=== PATIENT | female | born 1985 | race Caucasian/White ===

== ENCOUNTER 2018-09-22 16:12 | Emergency (ER) | payer OTHER ==
[~2018-09-22] VITALS: Ht 167.6 cm; Wt 51.3 kg
[~2018-09-22 16:12] MED LIST: NKM
--- NOTE | 2018-09-22 16:21 | NUR ---
ED Nurse Note: PT BROUGHT IN TO ER TODAY BY [id number] FROM HOME. AOX4. PT C/O HEADACHE, PAIN 10/10, X 1 HOUR AGO ALONG WITH RIGHT SIDED FACIAL NUMBNESS. PT STATES HEADACHE HAS SUBSIDED TO 4/10 NOW. PT ALSO STATES NUMBNESS HAS ALSO SUBSIDED. NO FACIAL DROOPING NOTED - EQUAL SMILE AND EYEBROW RAISES. NO ARM OR LEG DRIFTS. FULL VF AND OCULAR MOTILITY. PT DOES STATE SENSATION IS LESS ON THE RIGHT SIDE ON BOTH UPPER AND LOWER EXTREMITIES.
[2018-09-22 16:24] VITALS: BP 122/84
[2018-09-22] MEDS ORDERED: LORazepam 0.5mg tab ORAL ONE (16:30)
[2018-09-22 16:41] LABS: APPEARANCE,URINE CLEAR; BILIRUBIN, URINE NEGATIVE (NEGATIVE); GLUCOSE, URINE (UA) NEGATIVE (NEGATIVE); KETONES,URINE 1+ (NEGATIVE); LEUKOCYTE ESTERASE ,URINE NEGATIVE (NEGATIVE); NITRITE,URINE NEGATIVE (NEGATIVE); PH,URINE 5 (4.5-8.0); PROTEIN,URINE NEGATIVE (NEGATIVE); UROBILINOGEN,URINE 1 MG/DL (0.0-1.0)
[2018-09-22 16:44] LABS: COLOR,URINE YELLOW
[2018-09-22] MEDS ORDERED: Metoclopramide 10mg/2ml Inj IVP ONE (16:45)
[2018-09-22] MEDS ORDERED: DiphenhydrAMINE 50mg/ml Inj IVP ONE (16:45)
--- NOTE | 2018-09-22 16:53 | NUR ---
ED Nurse Note: PT TO CT VIA GREG.
[2018-09-22 17:26] LABS: BASOPHILS % (AUTO) 0.9 % (0.0-2.0); EOSINOPHILS % (AUTO) 1.3 % (0.0-3.0); HEMOGLOBIN 12.8 G/DL (12.0-16.0); LYMPHOCYTES % (AUTO) 24.8 % (20.0-45.0); MEAN CORPUSCULAR VOLUME 94 FL (80-99); PLATELET COUNT 173 K/UL (150-450); RED BLOOD COUNT 4.03 M/UL (4.20-5.40); RED CELL DISTRIBUTION WIDTH 10.9 % (11.6-14.8); WHITE BLOOD COUNT 5.6 K/UL (4.8-10.8)
[2018-09-22 17:39] LABS: ANION GAP 11 mmol/L (5-15); BLOOD UREA NITROGEN 13 mg/dL (7-18); CALCIUM 8.9 MG/DL (8.5-10.1); CARBON DIOXIDE 24 MMOL/L (21-32); CHLORIDE 108 MMOL/L (98-107); CREATININE 0.6 MG/DL (0.55-1.30); POTASSIUM 3.7 MMOL/L (3.5-5.1); SODIUM 142 MMOL/L (136-145)
--- NOTE | 2018-09-22 17:49 | Emergency Room Report ---
History of Present Illness General Chief Complaint: Headache Source: EMS Present Illness HPI 33-year-old female presents to the emergency department brought by ambulance after experiencing 10 out of 10 in severity right-sided somewhat acute onset headache which progressed to right-sided facial numbness and drooping. Patient reports that currently her pain she rates as a 5-6 out of 10 severity however she continues to have right-sided facial numbness as well as numbness to the right side of the tongue. She states that the facial drooping has resolved. Pt. reports that with onset of the HAIDER she became very pale and had difficulty with speech as well which concerned her sister. Patient reports that 3 family members have passed out a young age due to aneurysms. Patient denies history of high blood pressure she does report that she is a smoker. Denies weakness, paresthesias or loss of gross motor movements in any of the extremities. Has history of anxiety but states that she has been under a lot of stress lately. Patient states she was standing up cooking when her symptoms occurred. She reports a bout of dizziness she denies nausea vomiting she denies recent head injury, neck pain/stiffness, photophobia, or hx of migraines. Denies dental pain. Allergies: Coded Allergies: No Known Allergies (Unverified , 09/22/18) Patient History Past Medical History: none, see triage record Past Surgical History: none Pertinent Family History: other - ruptured aneurysms Social History: Reports: smoking Last Menstrual Period: 08/2018 Now: No Reviewed Nursing Documentation: PMH: Agreed; PSxH: Agreed Nursing Documentation-PMH Past Medical History: No Stated History Review of Systems All Other Systems: negative except mentioned in HPI Physical Exam Vital Signs Date Time Temp Pulse Resp B/P (MAP) Pulse Ox O2 Delivery O2 Flow Rate FiO2 09/22/18 16:07 62 16 117/78 (91) 98 Room Air 09/22/18 16:24 98.1 Sp02 EP Interpretation: reviewed, normal General Appearance: alert, GCS 15, non-toxic, moderate distress Head: normocephalic, atraumatic Eyes: bilateral eye normal inspection, bilateral eye PERRL ENT: hearing grossly normal, normal voice Neck: full range of motion, no meningismus, no bony tend Respiratory: chest non-tender, lungs clear, normal breath sounds, speaking full sentences Cardiovascular #1: regular rate, rhythm, normal capillary refill Cardiovascular #2: 2+ radial (R), 2+ radial (L) Musculoskeletal: back normal, gait/station normal, normal range of motion, non- tender Neurologic: alert, oriented x3, responsive, motor strength/tone normal, sensory intact, normal gait, speech normal, no pronator, other - normal finger to nose. able to stick tongue straight out. no facial droop., grossly normal, oriented Psychiatric: judgement/insight normal Lymphatic: no adenopathy Medical Decision Making PA Attestation Dr. Galvan is my supervising Physician whom patient management has been discussed with. Diagnostic Impression: Primary Impression: Headache Qualified Codes: R51 - Headache ER Course 33-year-old female presents to the emergency department brought by ambulance after experiencing 10 out of 10 in severity right-sided somewhat acute onset headache which progressed to right-sided facial numbness and drooping. Patient reports that currently her pain she rates as a 5-6 out of 10 severity however she continues to have right-sided facial numbness as well as numbness to the right side of the tongue. She states that the facial drooping has resolved. Pt. reports that with onset of the HAIDER she became very pale and had difficulty with speech as well which concerned her sister. Patient reports that 3 family members have passed out a young age due to aneurysms. Patient denies history of high blood pressure she does report that she is a smoker. Denies weakness, paresthesias or loss of gross motor movements in any of the extremities. Has history of anxiety but states that she has been under a lot of stress lately. Patient states she was standing up cooking when her symptoms occurred. She reports a bout of dizziness she denies nausea vomiting she denies recent head injury, neck pain/stiffness, photophobia, or hx of migraines. Denies dental pain. Ddx considered but are not limited to migraine, SAH, Pseudomotor Cerebri,, Mass lesion, Cluster HAIDER, Tension HAIDER, Post lumbar puncture HAIDER. Vital signs: are WNL, pt. is afebrile H&PE are most consistent with HAIDER with paresthesias in the right side of the face. no focal neurological deficits, no facial droop, negative pronator drift, and normal finger to nose testing. ORDERS: - CT head non contrasted: WNL - UA: WNL - Urine Hcg: Negative - CBC + BMP: WNL ED INTERVENTIONS: - 0.5mg Ativan PO - Reglan IV 10mg - 25mg Benadryl IV -1 Liter NS Bolus IV Pt. symptoms have completely resolved with above interventions. pt. reports feeling much better. DISCHARGE: At this time pt. is stable for d/c to home. Will provide printed patient care instructions, and any necessary prescriptions. Care plan and follow up instructions have been discussed with the patient prior to discharge. Labs Test 09/22/18 15:33 09/22/18 17:11 Urine Color Yellow Urine Appearance Clear Urine pH 5 (4.5-8.0) Urine Specific [place] 1.020 (1.005-1.035) Urine Protein Negative (NEGATIVE) Urine Glucose (UA) Negative (NEGATIVE) Urine Ketones 1+ (NEGATIVE) Urine Blood Negative (NEGATIVE) Urine Nitrite Negative (NEGATIVE) Urine Bilirubin Negative (NEGATIVE) Urine Urobilinogen 1 MG/DL (0.0-1.0) Urine Leukocyte Esterase Negative (NEGATIVE) Urine HCG, Qualitative Negative (NEGATIVE) White Blood Count 5.6 K/UL (4.8-10.8) Red Blood Count 4.03 M/UL (4.20-5.40) Hemoglobin 12.8 G/DL (12.0-16.0) Hematocrit 38.0 % (37.0-47.0) Mean Corpuscular Volume 94 FL (80-99) Mean Corpuscular Hemoglobin 31.9 PG (27.0-31.0) Mean Corpuscular Hemoglobin Concent 33.7 G/DL (32.0-36.0) Red Cell Distribution Width 10.9 % (11.6-14.8) Platelet Count 173 K/UL (150-450) Mean Platelet Volume 5.5 FL (6.5-10.1) Neutrophils (%) (Auto) 63.0 % (45.0-75.0) Lymphocytes (%) (Auto) 24.8 % (20.0-45.0) Monocytes (%) (Auto) 10.0 % (1.0-10.0) Eosinophils (%) (Auto) 1.3 % (0.0-3.0) Basophils (%) (Auto) 0.9 % (0.0-2.0) Sodium Level 142 MMOL/L (136-145) Potassium Level 3.7 MMOL/L (3.5-5.1) Chloride Level 108 MMOL/L (98-107) Carbon Dioxide Level 24 MMOL/L (21-32) Anion Gap 11 mmol/L (5-15) Blood Urea Nitrogen 13 mg/dL (7-18) Creatinine 0.6 MG/DL (0.55-1.30) Estimat Glomerular Filtration Rate > 60 mL/min (>60) Glucose Level 83 MG/DL (74-106) Calcium Level 8.9 MG/DL (8.5-10.1) CT/MRI/US Diagnostic Results CT/MRI/US Diagnostic Results : Imaging Test Ordered: CT Head No Contrast Impression " No evidence of acute fracture, hemorrhage, or intracranial process" per official radiology report- Please see report for specific details. Last Vital Signs Date Time Temp Pulse Resp B/P (MAP) Pulse Ox O2 Delivery O2 Flow Rate FiO2 09/22/18 16:24 98.1 68 17 122/84 99 Room Air Status: improved Disposition: HOME, SELF-CARE Condition: Stable Scripts Aspirin/Acetaminophen/Caffeine (EXCEDRIN MIGRAINE GELTAB) 1 Each Tablet 1 EACH PO Q6HR, #20 TAB Prov: Kailee Dominguez 09/22/18 Metoclopramide Hcl* (REGLAN*) 10 Mg Tablet 10 MG ORAL THREE TIMES A DAY for Headache, #9 TAB Prov: Kailee Dominguez 09/22/18 Patient Instructions: General Headache Without Cause Additional Instructions: Take medications as directed. Follow up with a Primary Care Provider in 3-5 days For a referral to have NEUROLOGIST Evaluation, even if your symptoms have resolved. --Please review list of primary care clinics, if you do not already have a primary care provider Return sooner to ED if new symptoms occur, or current symptoms become worse. - Please note that this Emergency Department Report was dictated using [employer] teacher technology software, occasionally this can lead to erroneous entry secondary to interpretation by the dictation equipment. Kailee Dominguez Sep 22, 2018 17:48
[2018-09-22] MEDS ORDERED: REGLAN10 MG ORAL (17:50)
[2018-09-22] MEDS ORDERED: EXCEDRIN MIGRA1 EACH PO (17:50)
--- NOTE | 2018-09-22 17:53 | NUR ---
ED Nurse Note: PT LAYING PEACEFULLY IN BED IN NAD. AOX4. PRESCRIPTIONS AND DISCHARGE PAPERWORK EXPLAINED TO PT. PT VERBALIZES UNDERSTANDING AND ALL QUESTIONS ANSWERED. PRESCRIPTIONS AND DISCHARGE PAPERWORK GIVEN TO PT, IV AND ID WRISTBAND REMOVED. PT WALKED OUT OF ER WITH STEADY GAIT AND ALL BELONGINGS.
[2018-09-22 17:54] VITALS: BP 118/80
--- NOTE | 2018-09-22 18:41 | Diagnostic Imaging Report ---
EXAM: CT Head Without Intravenous Contrast CLINICAL HISTORY: PAIN TECHNIQUE: Axial computed tomography images of the head/brain without intravenous contrast. CTDI is 70 mGy and DLP is 1358 mGy-cm. One or more of the following dose reduction techniques were used: automated exposure control, adjustment of the mA and/or kV according to patient size, use of iterative reconstruction technique. COMPARISON: No relevant prior studies available. FINDINGS: Brain: Unremarkable. No hemorrhage. No significant white matter disease. No edema. Ventricles: Unremarkable. No ventriculomegaly. Bones/joints: Unremarkable. No acute fracture. Soft tissues: Unremarkable. Sinuses: Unremarkable as visualized. No acute sinusitis. Mastoid air cells: Unremarkable as visualized. No mastoid effusion. IMPRESSION: Normal study.
== END 2018-09-22 17:15 | disposition home or self-care (01) ==
LOC: EDBD 16:12 → EMR 16:37 → EDBD 16:37 → EMR 17:15
DX: R51 Headache (principal); R29.810 Facial weakness; F17.200 Nicotine dependence, unspecified, uncomplicated; F41.9 Anxiety disorder, unspecified
CPT/HCPCS: 36415; 70450; 80048; 81003; 81025; 85025; 96361; 96374; 96375; 99284; J1200; J2765